=== PATIENT | male | born 1995 | race Caucasian/White ===

== ENCOUNTER 2022-10-04 16:20 | Emergency (ER) | payer MEDICAID ==
[~2022-10-04] VITALS: Ht 172.7 cm; Wt 75.0 kg
[2022-10-04 16:23] VITALS: BP 132/84; PULSE 84; RESP 16; TEMP 98.3; O2SAT 99
[2022-10-04] MEDS ORDERED: ACETAMINOPHEN 325MG TABLET PO ONE (18:45)
[2022-10-04] MEDS ORDERED: ACET-2708 MT (18:45)
== END 2022-10-04 19:32 | disposition home or self-care (01) ==
LOC: ER 16:20
DX: R51.9 Headache, unspecified (principal); M54.2 Cervicalgia
CPT/HCPCS: 99284